=== PATIENT | male | born 1975 | race Caucasian/White ===

== ENCOUNTER 2024-10-25 11:14 | Emergency (ER) | payer OTHER ==
[~2024-10-25] VITALS: Ht 172.7 cm; Wt 85.3 kg
[2024-10-25] MEDS ORDERED: CEPH500 PO ×2 (13:33→16:31)
[2024-10-25] MEDS ORDERED: Percocet 5-3251 EACH PO ×2 (13:33→16:31)
== END 2024-10-25 14:18 | disposition home or self-care (01) ==
LOC: ER 11:14
DX: S62.635A Displaced fracture of distal phalanx of left ring finger, initial encounter for closed fracture (principal); S62.631A Displaced fracture of distal phalanx of left index finger, initial encounter for closed fracture; S67.10XA Crushing injury of unspecified finger(s), initial encounter; S62.613A Displaced fracture of proximal phalanx of left middle finger, initial encounter for closed fracture; W31.2XXA Contact with powered woodworking and forming machines, initial encounter
CPT/HCPCS: 12001; 26725; 73130; 99283-25